=== PATIENT | female | born 2000 | race Caucasian/White ===

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

== ENCOUNTER 2019-04-03 18:20 | Emergency (ER) | payer MEDICAID ==
[~2019-04-03] VITALS: Ht 165.1 cm; Wt 67.8 kg
[~2019-04-03 18:20] MED LIST: OLAN2.5T10 PO
[2019-04-03 18:34] VITALS: BP 111/66
== END 2019-04-03 19:40 | disposition home or self-care (01) ==
LOC: ED 19:35
DX: O26.891 Other specified pregnancy related conditions, first trimester (principal); F17.210 Nicotine dependence, cigarettes, uncomplicated; Z3A.01 Less than 8 weeks gestation of pregnancy; Z72.89 Other problems related to lifestyle
CPT/HCPCS: 99283

== ENCOUNTER 2019-04-25 19:14 | Emergency (ER) | payer MEDICAID ==
[~2019-04-25] VITALS: Ht 162.6 cm; Wt 70.7 kg
--- NOTE | 2019-04-25 20:16 | NUR ---
pt to room from lobby
--- NOTE | 2019-04-25 20:16 | NUR ---
not in lobby
--- NOTE | 2019-04-25 20:20 | NUR ---
pt to room from lobby
--- NOTE | 2019-04-25 20:43 | NUR ---
pt ambulatory to ed from home. c/o MUELLER, flu like sx, n/v/d (very vague and keeps changing details between md and rn asking). aprox 2 months . , did not take anything for MUELLER bc does not knwo if safe in . MUELLER more on R side than L. flu swab pending. Dr. Alberto in room for eval. call zainab torres, bf at bedside. as
[2019-04-25 20:55] LABS: RAPID INFLUENZA A Negative (Negative); RAPID INFLUENZA B Negative (Negative)
[2019-04-25] MEDS ORDERED: DIPHENHYDRAMINE 50 MG/ML, 1ML IVPush ONE (21:00)
[2019-04-25] MEDS ORDERED: SODIUM CHLORIDE FLUSH 10ML SYR IVF ONE (21:00)
[2019-04-25] MEDS ORDERED: METOCLOPRAMIDE 5 MG/ML, 2ML IVPush ONE (21:00)
[2019-04-25] MEDS ORDERED: SODIUM CHLORIDE 0.9% 1,000ML IVBOLUS ONE (21:00)
[2019-04-25] MEDS ORDERED: METOCLOPRAMIDE 5 MG/ML, 2ML ONE (21:06)
[2019-04-25] MEDS ORDERED: DIPHENHYDRAMINE 50 MG/ML, 1ML ONE (21:06)
[2019-04-25 21:40] VITALS: BP 112/57
--- NOTE | 2019-04-25 21:40 | NUR ---
meds per mar, ivf infusing. oob to bathroom. vss. as
== END 2019-04-25 22:27 | disposition home or self-care (01) ==
LOC: ED 21:39
DX: G43.901 Migraine, unspecified, not intractable, with status migrainosus (principal); J20.9 Acute bronchitis, unspecified; R11.2 Nausea with vomiting, unspecified
CPT/HCPCS: 71045; 87400; 93005; 96361; 96374; 96375; 99284; J1200; J2765; J7030

== ENCOUNTER 2019-05-06 22:35 | Emergency (ER) | payer MEDICAID ==
[~2019-05-06] VITALS: Ht 162.6 cm; Wt 71.2 kg
[2019-05-06 22:38] VITALS: BP 113/65
[2019-05-06] MEDS ORDERED: ACETAMINOPHEN 325 MG TABLET PO ONE (23:00)
--- NOTE | 2019-05-06 23:00 | NUR ---
Rudi francois in [facility] - 05/06/19 at 2347 by BRITTANY PT RESTING COMFORTABLY. MONITOR IN PLACE.
[2019-05-06] MEDS ORDERED: ACETAMINOPHEN 325 MG TABLET ONE (23:01)
--- NOTE | 2019-05-06 23:30 | NUR ---
Note priscila in ED - 05/06/19 at 2347 by BRITTANY UA OBTAINED VIA STRAIGHT CATH. PT'S SON IN RM. PT TOLERATED WELL.
== END 2019-05-07 00:01 | disposition home or self-care (01) ==
LOC: ED 23:30
DX: O26.891 Other specified pregnancy related conditions, first trimester (principal); R07.89 Other chest pain; G43.909 Migraine, unspecified, not intractable, without status migrainosus; Z3A.09 9 weeks gestation of pregnancy
CPT/HCPCS: 71045; 93005; 99283

== ENCOUNTER 2019-05-09 16:50 | Emergency (ER) | payer MEDICAID ==
[~2019-05-09] VITALS: Ht 162.6 cm; Wt 71.0 kg
[2019-05-09 16:54] VITALS: BP 97/61
== END 2019-05-09 17:29 | disposition home or self-care (01) ==
LOC: ED 17:05
DX: L02.416 Cutaneous abscess of left lower limb (principal); J45.909 Unspecified asthma, uncomplicated; G40.909 Epilepsy, unspecified, not intractable, without status epilepticus; F17.200 Nicotine dependence, unspecified, uncomplicated
CPT/HCPCS: 99283

== ENCOUNTER 2019-11-13 17:51 | Outpatient (CLI) | payer MEDICAID ==
[~2019-11-13] VITALS: Ht 162.6 cm; Wt 96.8 kg
[2019-11-13 18:51] VITALS: BP 127/72
[2019-11-13 19:12] LABS: MICROSCOPIC INDICATED
== END 2019-11-13 21:06 | disposition home or self-care (01) ==
LOC: LDOP 17:51
PROVIDERS: ATTEND Obstetrics & Gynecology
DX: O26.893 Other specified pregnancy related conditions, third trimester (principal); R10.9 Unspecified abdominal pain; Z3A.37 37 weeks gestation of pregnancy
CPT/HCPCS: 59025; 76815; 81001; 84112; 89060; Q0114